=== PATIENT | male | born 1965 | race Caucasian/White ===

== ENCOUNTER → 2024-12-31 | Outpatient (CLI) | payer MEDICARE | END | disposition home or self-care (01) | LOC: ORTHO 08:21 | PROVIDERS: ATTEND Orthopaedic Surgery | DX: M25.531 Pain in right wrist (principal) ==

== ENCOUNTER → 2025-01-05 | Outpatient (CLI) | payer MEDICARE | END | disposition home or self-care (01) | LOC: CT 14:31 | PROVIDERS: ATTEND Orthopaedic Surgery | DX: S63.024A Dislocation of radiocarpal joint of right wrist, initial encounter (principal); M65.88 Other synovitis and tenosynovitis, other site; Q68.8 Other specified congenital musculoskeletal deformities; X58.XXXA Exposure to other specified factors, initial encounter; Y93.89 Activity, other specified; Y92.89 Other specified places as the place of occurrence of the external cause; Y99.8 Other external cause status ==